=== PATIENT | female | born 1950 | race Caucasian/White ===

== ENCOUNTER → 2017-07-15 | Outpatient (CLI) | payer BC ==
[~2017-07-15] MED LIST: BISA-236 RC; CELE-1 PO; CITA-128 PO; CITA-157 PO; DIPH-740 PO; DOCU50LI19 PO; HYDR-2963 PO; HYDR-2966 PO; HYDR12.556 PO; LEVO125T77 PO; LEVO137T22 PO; LEVO150T72 PO; LEVO200T44 PO; LIS20 PO; LISI-374 PO; LORA10CA3 PO; METF-407 PO; MULT-865 PO; MULT-912 PO; NAPR220C12 PO; OXYC-865 PO; OXYC20TA99 PO; RIV10 PO
--- NOTE | 2017-07-15 16:49 | RADIOLOGY IMAGING REPORT ---
[place] [facility] [place] NAME: GREG BACA : [id number] MR: [id number] V: [id number] EXAM DATE: ORDERING PHYSICIAN: CANDIS COLLADO TECHNOLOGIST: Bria Ocasio PROCEDURE:BILATERAL DIGITAL SCREENING MAMMOGRAM WITH CAD ASSISTED INTERPRETATION & 3D TOMOSYNTHESIS COMPARISON:Prior mammograms 11/16/15, 04/30/12, 04/02/12, 03/25/11. INDICATIONS:SCREENING FINDINGS: Moderately dense fibroglandular tissue is seen throughout the breasts. The parenchymal pattern has remained stable allowing for difference in mammographic technique & patient positioning. There is no evidence of malignant appearing mass, malignant appearing calcifications or other secondary sign of malignancy in either breast. DIAGNOSTIC CATEGORY 1--NEGATIVE. RECOMMENDATIONS: ROUTINE MAMMOGRAM AND CLINICAL EVALUATION. IMPRESSION: BIRADS 1: Negative No significant abnormality is seen. Dictated by: Marizol Toussaint M.D. on 07/15/2017 at 13:52 Transcribed by: [email or web address] on 07/15/2017 at 14:00 Approved by: Marizol Toussaint M.D. on 07/15/2017 at 16:48 [facility]
== END ==
LOC: MAMO 00:49
PROVIDERS: ATTEND Internal Medicine
DX: Z12.31 Encounter for screening mammogram for malignant neoplasm of breast (principal)
CPT/HCPCS: 77063; 77067

== ENCOUNTER → 2017-08-06 | Outpatient (CLI) | payer BC ==
[~2017-08-06] MED LIST changes: +ASPI-1471 PO; +BETA15OI20 TP; +ROSU10TA13 PO
== END ==
LOC: LAB 14:35
PROVIDERS: ATTEND Emergency Medicine
DX: E11.9 Type 2 diabetes mellitus without complications (principal)
CPT/HCPCS: 36415; 83036

== ENCOUNTER → 2018-10-22 | Outpatient (CLI) | payer MEDICARE, OTHER ==
[~2018-10-22] MED LIST changes: +CITA-137 PO; +CITA-145 PO; +CITA-155 PO; +DULA0.75 SUBQ; +DULA1.5P SUBQ; +EMPA10TA PO; +FLU180SY11 IM; +PNEU0.5D3 IM; -ROSU10TA13 PO; +ROSU10TA5 PO; +SITA100T PO; +SULF-198 PO
== END ==
LOC: LAB 13:21
PROVIDERS: ATTEND Surgery
DX: C44.519 Basal cell carcinoma of skin of other part of trunk (principal)
CPT/HCPCS: 88305